=== PATIENT | female | born 1955 | race Two or more races ===

== ENCOUNTER 2017-04-08 09:34 | Outpatient (CLI) | payer OTHER ==
[~2017-04-08 09:34] MED LIST: ROBITUSSIN7.4 MG MM
== END 2017-04-08 09:51 | disposition home or self-care (01) ==
LOC: SONOGRAMA 09:34
DX: R10.84 Generalized abdominal pain (principal)

== ENCOUNTER 2017-09-29 10:36 | Emergency (ER) | payer OTHER ==
[~2017-09-29] VITALS: Ht 154.9 cm; Wt 64.9 kg
[2017-09-29] MEDS ORDERED: OMEPRAZOLE40 MG (10:58)
[2017-09-29] MEDS ORDERED: CRESTOR5 MG (10:58)
== END 2017-09-29 18:01 | disposition home or self-care (01) ==
LOC: ER 10:36
DX: K52.9 Noninfective gastroenteritis and colitis, unspecified (principal)

== ENCOUNTER 2017-12-09 13:45 | Outpatient (CLI) | payer OTHER ==
[~2017-12-09 13:45] MED LIST changes: +CRESTOR5 MG; +OMEPRAZOLE40 MG
== END 2017-12-09 13:53 | disposition home or self-care (01) ==
LOC: MAMO-SONO 13:45
DX: Z12.31 Encounter for screening mammogram for malignant neoplasm of breast (principal)

== ENCOUNTER 2018-11-24 10:10 | Outpatient (CLI) | payer OTHER | END 2018-11-24 13:24 | disposition home or self-care (01) | LOC: MRI 10:10 | DX: M54.5 Low back pain (principal); M15.0 Primary generalized (osteo)arthritis | CPT/HCPCS: 72148 ==

== ENCOUNTER 2020-05-30 13:35 | Outpatient (CLI) | payer OTHER | END 2020-05-30 13:41 | disposition home or self-care (01) | LOC: SONOGRAMA 13:35 → MAMO-SONO 13:45 | PROVIDERS: ATTEND Internal Medicine | DX: E04.1 Nontoxic single thyroid nodule (principal) ==

== ENCOUNTER 2020-11-03 11:24 | Outpatient (CLI) | payer OTHER | END 2020-11-03 13:11 | disposition home or self-care (01) | LOC: MAMO-SONO 11:24 | PROVIDERS: ATTEND Internal Medicine Geriatric Medicine | DX: N62 Hypertrophy of breast (principal); Z12.31 Encounter for screening mammogram for malignant neoplasm of breast; M81.0 Age-related osteoporosis without current pathological fracture ==

== ENCOUNTER 2020-11-03 13:25 | Outpatient (CLI) | payer OTHER | END 2020-11-03 13:31 | disposition home or self-care (01) | LOC: NUCLEAR 13:25 | PROVIDERS: ATTEND Internal Medicine Geriatric Medicine | DX: M81.0 Age-related osteoporosis without current pathological fracture (principal) ==

== ENCOUNTER 2020-11-10 07:00 | Outpatient (CLI) | payer OTHER | END 2020-11-10 07:30 | disposition home or self-care (01) | LOC: PPH VACUNA 07:00 | PROVIDERS: ATTEND Emergency Medicine Pediatric Emergency Medicine | DX: Z23 Encounter for immunization (principal) ==

== ENCOUNTER 2021-06-02 09:49 | Emergency (ER) | payer OTHER ==
[~2021-06-02] VITALS: Ht 154.9 cm; Wt 66.7 kg
[2021-06-03] MEDS ORDERED: FAMCICLOVIR500 MG PO (21:19)
[2021-06-03] MEDS ORDERED: NEURONTIN300 MG PO (21:19)
== END 2021-06-02 16:53 | disposition home or self-care (01) ==
LOC: ER 09:49
DX: R10.31 Right lower quadrant pain (principal); I10 Essential (primary) hypertension

== ENCOUNTER 2021-06-03 20:43 | Emergency (ER) | payer OTHER ==
[~2021-06-03] VITALS: Ht 154.9 cm; Wt 66.7 kg
[2021-06-03] MEDS ORDERED: NEURONTIN300 MG PO (21:19)
[2021-06-03] MEDS ORDERED: FAMCICLOVIR500 MG PO (21:19)
== END 2021-06-03 21:23 | disposition home or self-care (01) ==
LOC: ER 20:43
DX: B02.9 Zoster without complications (principal)

== ENCOUNTER 2022-04-12 12:57 | Outpatient (CLI) | payer OTHER ==
[~2022-04-12 12:57] MED LIST changes: +FAMCICLOVIR500 MG PO; +NEURONTIN300 MG PO
== END 2022-04-12 13:08 | disposition home or self-care (01) ==
LOC: SONOGRAMA 12:57
DX: N62 Hypertrophy of breast (principal)

== ENCOUNTER 2022-04-15 10:21 | Outpatient (CLI) | payer OTHER | END 2022-04-15 10:27 | disposition home or self-care (01) | LOC: RAD 10:21 | PROVIDERS: ATTEND Internal Medicine Rheumatology | DX: M54.2 Cervicalgia (principal); M54.17 Radiculopathy, lumbosacral region; M51.36 Other intervertebral disc degeneration, lumbar region ==

== ENCOUNTER 2023-02-15 11:19 | Outpatient (CLI) | payer OTHER | END 2023-02-15 11:36 | disposition home or self-care (01) | LOC: MRI 11:19 | PROVIDERS: ATTEND Specialist | DX: M47.816 Spondylosis without myelopathy or radiculopathy, lumbar region (principal); M16.0 Bilateral primary osteoarthritis of hip | CPT/HCPCS: 72148 ==

== ENCOUNTER 2023-04-08 15:24 | Emergency (ER) | payer OTHER ==
[~2023-04-08] VITALS: Ht 154.9 cm; Wt 67.1 kg
[2023-04-08] MEDS ORDERED: LISINOPRIL 5 MG TABLET PO STA (18:31)
[2023-04-08 19:28] LABS: HEMATOCRIT 44.6 % (36.0-45.00); HEMOGLOBIN 15.1 g/dL (12.0-15.00); MEAN CELL VOLUME 89.4 fL (80.00-100.00); MEAN CORPUSCULAR HEMOGLOBIN 30.2 pg (27.00-32.0); MEAN CORPUSCULAR HGB CONC 33.8 g/dl (32.0-36.0); PLATELET COUNT 324 K/uL (150-450); RED BLOOD COUNT 4.99 M/uL (4.00-6.00); RED CELL DISTRIBUTION WIDTH 14.1 % (11.5-14.5)
[2023-04-08 19:46] LABS: CALCIUM 10.7 mg/dL (8.5-10.1); CREATININE SERUM 0.88 mg/dL (0.55-1.02); GFR 63.71; POTASSIUM 4.62 mEq/L (3.5-5.1)
[2023-04-08] MEDS ORDERED: KETOROLAC TROMETHAMINE 30 MG VIAL IM STA (19:58)
== END 2023-04-08 21:09 | disposition home or self-care (01) ==
LOC: ER 15:24
PROVIDERS: General Practice
DX: M54.2 Cervicalgia (principal)
CPT/HCPCS: 36415; 96372; 99282; J1885

== ENCOUNTER 2023-08-05 09:12 | Outpatient (CLI) | payer OTHER | END 2023-08-05 09:13 | disposition home or self-care (01) | LOC: RAD 09:12 | DX: R05.9 Cough, unspecified (principal) ==

== ENCOUNTER 2023-10-14 14:10 | Outpatient (CLI) | payer OTHER | END 2023-10-14 14:15 | disposition home or self-care (01) | LOC: MAMO-SONO 14:10 | DX: Z12.31 Encounter for screening mammogram for malignant neoplasm of breast (principal) ==

== ENCOUNTER 2024-07-06 10:03 | Outpatient (CLI) | payer OTHER | END 2024-07-06 10:11 | disposition home or self-care (01) | LOC: MRI 10:03 | DX: G43.711 Chronic migraine without aura, intractable, with status migrainosus (principal) | CPT/HCPCS: 70551 ==

== ENCOUNTER 2024-07-18 09:59 | Outpatient (CLI) | payer OTHER | END 2024-07-18 10:00 | disposition home or self-care (01) | LOC: NUCLEAR 09:59 | PROVIDERS: ATTEND Internal Medicine | DX: M81.0 Age-related osteoporosis without current pathological fracture (principal) ==

== ENCOUNTER 2024-11-01 11:24 | Emergency (ER) | payer OTHER ==
[~2024-11-01] VITALS: Ht 154.9 cm; Wt 64.4 kg
[2024-11-01 11:57] VITALS: BP 132/85; O2SAT 98
[2024-11-01] MEDS ORDERED: KETOROLAC TROMETHAMINE 60 MG VIAL IM ONE ×2 (13:00→14:07)
[2024-11-01] MEDS ORDERED: NORFLEX100MG PO (14:43)
== END 2024-11-01 14:54 | disposition home or self-care (01) ==
LOC: ER 11:25
DX: G89.11 Acute pain due to trauma (principal); M79.671 Pain in right foot
CPT/HCPCS: 73610; 73630; 96372; 99283; J1885

== ENCOUNTER 2024-11-14 08:10 | Outpatient (CLI) | payer OTHER ==
[~2024-11-14 08:10] MED LIST changes: +NORFLEX100MG PO
== END 2024-11-14 08:12 | disposition home or self-care (01) ==
LOC: RAD 08:10
PROVIDERS: ATTEND Orthopaedic Surgery
DX: S80.02XA Contusion of left knee, initial encounter (principal)

== ENCOUNTER → 2024-11-26 | Outpatient (CLI) | payer OTHER | END | disposition home or self-care (01) | LOC: MRI 11:00 | PROVIDERS: ATTEND Orthopaedic Surgery | DX: M25.561 Pain in right knee (principal); M23.91 Unspecified internal derangement of right knee | CPT/HCPCS: 73721 ==

== ENCOUNTER 2025-01-10 09:30 | Outpatient (CLI) | payer OTHER | END 2025-01-10 09:32 | disposition home or self-care (01) | LOC: MRI 09:30 | PROVIDERS: ATTEND Orthopaedic Surgery | DX: M76.71 Peroneal tendinitis, right leg (principal); S93.491D Sprain of other ligament of right ankle, subsequent encounter | CPT/HCPCS: 73721 ==